=== PATIENT | male | born 1965 | race Two or more races ===

== ENCOUNTER 2022-12-30 20:24 | Emergency (ER) | payer SELFPAY ==
[~2022-12-30] VITALS: Ht 162.6 cm; Wt 73.0 kg
[2022-12-30 21:06] VITALS: BP 131/79
[2022-12-31] MEDS ORDERED: FLUORESCEIN SODIUM 1MG/STRIP RIGHTEYE ONE
[2022-12-31] MEDS ORDERED: FLUORESCEIN SODIUM 1MG/STRIP RIGHTEYE NR
[2022-12-31] MEDS ORDERED: DEXT15DR5 RIGHTEYE (00:37)
== END 2022-12-31 00:57 | disposition home or self-care (01) ==
LOC: ER 20:24
DX: H57.11 Ocular pain, right eye (principal); E78.00 Pure hypercholesterolemia, unspecified; I10 Essential (primary) hypertension
CPT/HCPCS: 99282